=== PATIENT | female | born 1980 | race Hispanic/Latino ===

== ENCOUNTER 2025-07-07 12:16 | Emergency (ER) | payer BC, OTHER ==
[2025-07-07 13:39] LABS: Absolute Lymphocytes (CBC) 1.9 K/uL (0.7-4.9); Hematocrit 42.1 % (36.0-45.0); Hemoglobin 14.1 g/dL (12.0-15.0); MCH 29.5 pg (27.0-35.0); MCHC 33.5 g/dL (32.0-36.0); MCV 88.1 fL (80-100); MPV 7.4 fL (7.6-11.3); Nucleated RBC Absolute Count 0.0 (0-0); Nucleated Red Blood Cells % 0.0 % (0-0); RBC Red Blood Cell Count 4.78 M/uL (3.86-4.86); White Blood Count 7.10 thou/uL (4.3-10.9)
--- NOTE | 2025-07-07 13:45 | RAD REPORT ---
EXAM: Chest Pa And Lat (2 Views) HISTORY: 45 years Female CHEST PAIN COMPARISON: No prior exams FINDINGS: LUNGS/PLEURA: The lungs are clear. No pleural effusions or pneumothorax. No pulmonary edema. CARDIAC/MEDIASTINUM: The cardiac silhouette is within normal limits. UPPER ABDOMEN: No significant abnormality. BONES: No acute abnormality. LINES/TUBES/OTHER: N/A IMPRESSION: No evidence of acute cardiopulmonary disease.
[2025-07-07 13:57] LABS: Anion Gap 9.1 mEq/L (5.0-15.0); BUN Blood Urea Nitrogen 14 mg/dL (7-18); Glucose Level 101 mg/dL (74-106); Potassium 4.1 mEq/L (3.5-5.1)
[2025-07-07 13:58] LABS: Troponin High Sensitivity < 3.0 pg/mL (<58.9)
[2025-07-07] MEDS ORDERED: ONDANSETRON 4 MG/2 ML VIAL ONE (14:00)
[2025-07-07] MEDS ORDERED: KETOROLAC 30 MG/ML INJ ONE (14:14)
[2025-07-07] MEDS ORDERED: DIPHENHYDRAMINE 50 MG/ML VIAL ONE (14:15)
[2025-07-07] MEDS ORDERED: NA CHLORIDE 0.9% 500 ML ONE (14:15)
--- NOTE | 2025-07-07 15:05 | EDPHYS ---
Physician Documentation [facility] Name: Danielle Freeman Age: 45 yrs Sex: Female : 1980 Arrival Date: 07/07/2025 Time: 12:16 Bed 13 Private MD: ED Physician Lisa Caceres HPI: 07/07 17:50 This 45 yrs old Female presents to ER via Ambulatory with complaints of Chest dr5 Pressure, Vomiting, Headache. 17:50 Onset: The symptoms/episode began/occurred acutely. Patient is a 45-year-old female dr5 with history of peripheral vascular disease coming in with headache, nausea, vomiting that started this morning. Patient also reports left shoulder pain that radiates down her left arm that she complains of numbness and tingling which alleviates with movement and worsens with keeping flat.. 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 - Infectious Disease History:: Denies. - Social history:: Smoking status: Patient denies any tobacco usage or history of. ROS: 17:50 Constitutional: as per hpi dr5 Exam: 17:50 Constitutional: This is a well developed, well nourished patient who is awake, alert, dr5 and in no acute distress. Head/Face: Normocephalic, atraumatic. ENT: Nares patent. No nasal discharge, no septal abnormalities noted. Tympanic membranes are normal and external auditory canals are clear. Oropharynx with no redness, swelling, or masses, exudates, or evidence of obstruction, uvula midline. Mucous membranes moist. Neck: Trachea midline, no thyromegaly or masses palpated, and no cervical lymphadenopathy. Supple, full range of motion without nuchal rigidity, or vertebral point tenderness. No Meningismus. Chest/axilla: Normal chest wall appearance and motion. Nontender with no deformity. No lesions are appreciated. Cardiovascular: Regular rate and rhythm with a normal S1 and S2. Normal PMI, no JVD. No pulse deficits. Respiratory: Lungs have equal breath sounds bilaterally, clear to auscultation. No rales, rhonchi or wheezes noted. No increased work of breathing, no retractions or nasal flaring. Back: No spinal tenderness. No costovertebral tenderness. Full range of motion. Skin: Warm, dry with normal turgor. Normal color with no rashes, no lesions, and no evidence of cellulitis. MS/ Extremity: Pulses equal, no cyanosis. Neurovascular intact. Full, normal range of motion. Neuro: Awake and alert, GCS 15, oriented to person, place, time, and situation. Cranial nerves II-XII grossly intact. Motor strength 5/5 in all extremities. Sensory grossly intact. Cerebellar exam normal. Normal gait. Vital Signs: 12:28 BP 166 / 96; Pulse 75; Resp 18; Temp 98.4; Pulse Ox 100% ; Weight 95.25 kg; Height 5 me1 ft. 6 in. ; Pain 4/10; 15:11 BP 152 / 82; Pulse 76; Resp 16 S; Pulse Ox 100% on R/A; kc6 12:28 Body Mass Index 33.89 (95.25 kg, 167.64 cm) me1 12:28 Pain Scale: Adult me1 MDM: 12:24 Medical Screening Exam initiated dr5 17:52 Differential diagnosis: viral Infection, bacterial infection, URI, NSTEMI, STEMI, PNA, dr5 electrolyte abnormality, muscular pain, nerve impingement, dehydration. Data reviewed: vital signs, nurses notes, lab test result(s), cardiac enzymes, troponin i, CBC, white blood cell count, hemoglobin, hematocrit, platelets, electrolytes, sodium, potassium, chloride, serum bicarbonate, BUN, creatinine, serum glucose, EKG, radiologic studies, plain films. Consideration of Admission/Observation Escalation of care including admission/observation considered. Consider admission if patient was not feeling better or if patient had elevated troponin or abnormal EKG. I considered the following discharge prescriptions or medication management in the emergency department I discussed and recommended Over The Counter medications, Medications were administered in the Emergency Department. See MAR. Independent interpretation of the following test(s) in the Emergency Department X-Ray: My interpretation is Independent interpretation of x-ray revealed no infiltrates concerning for pneumonia.. Historians other than the Patient: Spouse/Significant Other: . Care significantly affected by the following chronic conditions: Peripheral vascular disease. Care significantly affected by the following Social Determinants of Health: Poor access to healthcare and/or lack of insurance, Poor access to transportation, Problems related to employment. Scoring Tools HEART Score: History: ECG: Age: Risk Factors: Troponin: Total Score = 2. Counseling: I had a detailed discussion with the patient and/or guardian regarding the historical points, exam findings, and any diagnostic results supporting the discharge/admit diagnosis, the presence of at least one elevated blood pressure reading (>120/80) during this emergency department visit. Counseling: I had a detailed discussion with the patient and/or guardian regarding lab results, radiology results, the need for outpatient follow up, for definitive care, a family practitioner, to return to the emergency department if symptoms worsen or persist or if there are any questions or concerns that arise at home. Medication response: Toradol relieved patient's pain. The symptoms have resolved, Benadryl, normal saline, Zofran, Toradol. Response to treatment: the patient's symptoms have resolved after treatment, the patient's condition has returned to base line. Special discussion: I have referred the patient to see his PCP for further evaluation of high blood pressure. I discussed with the patient/guardian in detail that at this point there is no indication for admission to the hospital. It is understood, however, that if the symptoms persist or worsen the patient needs to return immediately for re-evaluation. Based on the history and exam findings, there is no indication for further emergent testing or inpatient evaluation. I discussed with the patient/guardian the need to see the primary care provider for further evaluation of the symptoms. ED course: Patient reports her pain and nausea has resolved. Explained to patient that left arm intermittent numbness and tingling is likely due to nerve impingement. Patient's labs and radiology reports were printed and given to patient. Recommended patient follow-up primary care doctor. Medication given to help with symptoms. Patient reports he is feeling much better. All questions were answered and strict ER precautions given to patient.. 07/07 13:02 Order name: Basic Metabolic Panel; Complete Time: 14:03 dr5 07/07 13:02 Order name: CBC with Diff; Complete Time: 13:41 07/07 13:02 Order name: Troponin HS; Complete Time: 14:03 dr5 07/07 13:02 Order name: Chest Pa And Lat (2 Views) XRAY; Complete Time: 13:50 07/07 13:02 Order name: Cardiac monitoring; Complete Time: 13:12 dr5 07/07 13:02 Order name: EKG - Nurse/Tech; Complete Time: 13:05 dr5 07/07 13:02 Order name: IV Saline Lock; Complete Time: 13: dr5 07/07 13:02 Order name: Labs collected and sent; Complete Time: : dr5 07/07 13:02 Order name: O2 Per Protocol; Complete Time: 13: dr5 07/07 13:02 Order name: O2 Sat Monitoring; Complete Time: 13:12 dr5 EC:56 Rate is 63 beats/min. Rhythm is regular. QRS [place] is Normal. MI interval is normal at dr5 136 msec. QRS interval is normal at 110 msec. QT interval is normal at 414 msec. Administered Medications: 14:13 Drug: Ondansetron IVP 4 mg IVP once; over 2 minutes Route: IVP; Site: left forearm; kc6 15:11 Follow up: Response: No adverse reaction; Nausea is decreased [facility] 14:25 Drug: NS 0.9% IV 500 ml IV at bolus once; to be given as a bolus over 30 minutes Route: kc6 IV; Rate: bolus; Site: left forearm; 15:11 Follow up: Response: No adverse reaction; IV Status: Completed infusion; IV Intake: kc6 500ml 14:25 Drug: Ketorolac IVP 15 mg IVP once Route: IVP; Site: left forearm; kc6 15:11 Follow up: Response: No adverse reaction; Pain is decreased 6 14:25 Drug: diphenhydrAMINE IVP 12.5 mg IVP once Route: IVP; Site: left forearm; kc6 15:11 Follow up: Response: No adverse reaction kc6 Disposition Summary: 07/07/25 15:05 Discharge Ordered Notes: Location: Home dr5 Condition: Stable dr5 Diagnosis - Headache dr5 - Nausea with vomiting, unspecified dr5 Followup: dr5 - With: Emergency Department - When: As needed - Reason: Worsening of condition Followup: dr5 - With: Private Physician - When: 1 - 2 days - Reason: Recheck today's complaints, Continuance of care, Re-evaluation by your physician Discharge Instructions: - Discharge Summary Sheet dr5 - Dehydration, Adult dr5 - Migraine Headache dr5 - Nausea and Vomiting, Adult dr5 Forms: - Medication Reconciliation Form dr5 - Patient Portal Instructions dr5 - Leadership Thank You Letter dr5 Prescriptions: - Zofran 4 mg Oral Tablet - take 1 tablet ORAL route every 12 hours As needed; 20 tablet; Refills: 0, dr5 Product Selection Permitted - Cyclobenzaprine 10 mg Oral Tablet - take 1 tablet ORAL route every 8 hours As needed; 30 tablet; Refills: 0, dr5 Product Selection Permitted - Medrol (Jayden) 4 mg Oral Tablets, Dose Pack - take 1 tablet ORAL route as directed - follow package instructions; 1 packet; dr5 Refills: 0, Product Selection Permitted Signatures: Dispatcher [employer] Kaia Barger, RN RN kc6 Loreto Zapien RN RN me1 Galdino Sotelo, SALES OPERATIONS CONSULTANT-C SALES OPERATIONS CONSULTANT-Cdr5 Corrections: (The following items were deleted from the chart) 13:02 13:02 Chest Pa And Lat (2 Views)+[email or web address] ordered. EDWY EDMS
--- NOTE | 2025-07-07 15:05 | ER ---
Nurse's Notes [facility] Name: Danielle Freeman Age: 45 yrs Sex: Female : 1980 Arrival Date: 07/07/2025 Time: 12:16 Bed 13 Private MD: Diagnosis: Headache;Nausea with vomiting, unspecified Presentation: 07/07 12:28 Chief complaint: Patient states: started having n/v early this morning then developed a me1 VILLA and chest pressure 4/10. Reports her left arm didn't hurt but "it felt tired". Went to urgent care [facility] and they did an EKG and recommended she come to ER. Covid and flu swabs were negative. Coronavirus screen: Vaccine status: Patient reports receiving the 2nd dose of the covid vaccine. Ebola Screen: No symptoms or risks identified at this time. Initial Sepsis Screen: Does the patient meet any 2 criteria? No. Patient's initial sepsis screen is negative. Does the patient have a suspected source of infection? No. Patient's initial sepsis screen is negative. Risk Assessment: Do you want to hurt yourself or someone else? Patient reports no desire to harm self or others. Onset of symptoms was July 07, 2025 at 07:00. 12:28 Method Of Arrival: Ambulatory wi1 12:28 Acuity: LINO 3 me1 STOCK SHAPER: 12:31 LMP N/A - Post-menopause, Not me1 Historical: - Allergies: 12:31 No Known Allergies; me1 - PMHx: 12:31 Peripheral vascular disease; me1 - PSHx: 12:31 section; bilateral foot surgery; Cholecystectomy; blepharplasty; me1 - Immunization history:: Adult Immunizations up to date. - Infectious Disease History:: Denies. - Social history:: Smoking status: Patient denies any tobacco usage or history of. Screenin:26 [facility] ED Fall Risk Assessment (Adult) History of falling in the last 3 months, kc6 including since admission No falls in past 3 months (0 pts) Confusion or Disorientation No (0 pts) Intoxicated or Sedated No (0 pts) Impaired Gait No (0 pts) Mobility Assist Device Used No (0 pt) Altered Elimination No (0 pt) Score/Fall Risk Level 0 - 2 = Low Risk Oriented to surroundings. Abuse screen: Denies threats or abuse. Denies injuries from another. Nutritional screening: No deficits noted. Tuberculosis screening: No symptoms or risk factors identified. Assessment: 13:26 General: Appears in no apparent distress. comfortable, well groomed, well developed, kc6 Behavior is calm, cooperative, appropriate for age. Pain: Complains of pain in chest Pain radiates to left arm Pain began suddenly, Is continuous. Neuro: Level of Consciousness is awake, alert, obeys commands, Oriented to person, place, time, situation, Appropriate for age Reports headache. Cardiovascular: Reports chest pain, nausea, vomiting, Heart tones S1 S2 present Capillary refill < 3 seconds Rhythm is regular. Respiratory: Airway is patent Trachea midline Respiratory effort is even, unlabored, Respiratory pattern is regular, symmetrical. GI: Reports nausea, vomiting, Patient currently denies abdominal pain, diarrhea. : No signs and/or symptoms were reported regarding the genitourinary system. EENT: No signs and/or symptoms were reported regarding the EENT system. Derm: No signs and/or symptoms reported regarding the dermatologic system. Skin is intact, is healthy with good turgor, Skin is pink, warm \\T\\ dry. Musculoskeletal: No signs and/or symptoms reported regarding the musculoskeletal system. Circulation, motion, and sensation intact. Range of motion: intact in all extremities. 15:11 Reassessment: Patient appears in no apparent distress at this time. No changes from kc6 previously documented assessment. Patient and/or family updated on plan of care and expected duration. Pain level reassessed. Patient is alert, oriented x 3, equal unlabored respirations, skin warm/dry/pink. Patient states feeling better. Patient states symptoms have improved. Vital Signs: 12:28 BP 166 / 96; Pulse 75; Resp 18; Temp 98.4; Pulse Ox 100% ; Weight 95.25 kg; Height 5 me1 ft. 6 in. ; Pain 4/10; 15:11 BP 152 / 82; Pulse 76; Resp 16 S; Pulse Ox 100% on R/A; kc6 12:28 Body Mass Index 33.89 (95.25 kg, 167.64 cm) wi1 12:28 Pain Scale: [place] [facility] [place]: 12:22 Patient arrived in ED. im 12:24 Galdino Sotelo FNP-C is PHCP. dr5 12:24 Lisa Caceres MD is Attending Physician. dr5 12:31 Triage completed. me1 12:31 Arm band placed on Patient placed in an exam room. me1 13:05 EKG done, by surgical scrub technician. reviewed by Galdino GOVEA. ts3 13:12 Kaia Esqueda, RN is Primary Nurse. kc6 13:26 Patient has correct armband on for positive identification. Bed in low position. Call kc6 light in reach. Side rails up X 1. conveyor monitor on. Pulse ox on. NIBP on. Door closed. Noise minimized. Lights dimmed. Pillow given. Verbal reassurance given. 13:26 Initial lab(s) drawn, by me, sent to lab. Inserted saline lock: 24 gauge in left kc6 forearm, using aseptic technique. Blood collected. Flushed with 10 mL NS. Patient maintains SpO2 saturation greater than 95% on room air. 13:38 Chest Pa And Lat (2 Views) XRAY In Process Unspecified. EDMS 15:12 No provider procedures requiring assistance completed. IV discontinued, intact, kc6 bleeding controlled, No redness/swelling at site. Pressure dressing applied. Administered Medications: 14:13 Drug: Ondansetron IVP 4 mg IVP once; over 2 minutes Route: IVP; Site: left forearm; kc6 15:11 Follow up: Response: No adverse reaction; Nausea is decreased kc6 14:25 Drug: NS 0.9% IV 500 ml IV at bolus once; to be given as a bolus over 30 minutes Route: kc6 IV; Rate: bolus; Site: left forearm; 15:11 Follow up: Response: No adverse reaction; IV Status: Completed infusion; IV Intake: kc6 500ml 14:25 Drug: Ketorolac IVP 15 mg IVP once Route: IVP; Site: left forearm; kc6 15:11 Follow up: Response: No adverse reaction; Pain is decreased kc6 14:25 Drug: diphenhydrAMINE IVP 12.5 mg IVP once Route: IVP; Site: left forearm; kc6 15:11 Follow up: Response: No adverse reaction kc6 Medication: 15:12 VIS not applicable for this client. kc6 Intake: 15:11 IV: 500ml; Total: 500ml. kc6 Outcome: 15:05 Discharge ordered by . dr5 15:12 Discharged to home ambulatory, with significant other, kc6 15:12 Condition: improved 15:12 Discharge instructions given to patient, significant other, Instructed on discharge instructions, follow up and referral plans. medication usage, Demonstrated understanding of instructions, follow-up care, medications, Prescriptions given X 3, 15:12 Patient left the ED. kc6 Signatures: Dispatcher [employer] Kaia Barger RN RN kc6 Kamila Fierro Michelle, RN RN me1 Galdino Sotelo, WOOD MOLDER-C WOOD MOLDER-Cdr5 Iliana Alfaro 3
[2025-07-07 15:26] VITALS: TEMP 98.4; O2SAT 100
[2025-07-07 15:31] VITALS: BP 152/82
== END 2025-07-07 15:12 | disposition home or self-care (01) ==
LOC: ER 12:16
DX: R51.9 Headache, unspecified (principal); R11.2 Nausea with vomiting, unspecified; R07.9 Chest pain, unspecified; I73.9 Peripheral vascular disease, unspecified
CPT/HCPCS: 96361; 85025; 80048; 36415; 84484; 71046; 96375; 96374; 99285; J1200; J2405; J7040